=== PATIENT | male | born 1995 | race African-American/Black ===

== ENCOUNTER 2020-03-09 14:54 | Emergency (ER) | payer OTHER ==
[2020-03-10 16:29] LABS: SARS-CoV-2 MS2 Positive; SARS-CoV-2 N Gene Negative; SARS-CoV-2 S Gene Negative; SARS-CoV-2 orf1ab Negative
== END 2020-03-09 15:45 | disposition home or self-care (01) ==
LOC: ERS 14:54
DX: K21.9 Gastro-esophageal reflux disease without esophagitis (principal); Z20.828 Contact with and (suspected) exposure to other viral communicable diseases
CPT/HCPCS: 87635; 99283; U0003